=== PATIENT | male | born 1960 | race Caucasian/White ===

== ENCOUNTER → 2017-06-15 | Emergency (ER) | payer MEDICAID ==
[~2017-06-15] VITALS: Ht 182.9 cm; Wt 86.4 kg
[2017-06-15 11:09] LABS: BASOPHILS # (AUTO) 0.1 X10'3 (0-0.2); BASOPHILS % (AUTO) 0.6 % (0-1); EOSINOPHILS # (AUTO) 0.2 X10'3 (0-0.9); EOSINOPHILS % (AUTO) 1.6 % (0-6); HEMATOCRIT 46.2 % (42.0-52.0); HEMOGLOBIN 15.5 g/dl (14.0-17.9); LYMPHOCYTES # (AUTO) 2.4 X10'3 (1.1-4.8); LYMPHOCYTES % (AUTO) 23.4 % (21-51); MEAN CORPUSCULAR HEMOGLOBIN 29.8 PG (27.0-31.0); MEAN CORPUSCULAR HGB CONC 33.6 % (33.0-36.5); MEAN CORPUSCULAR VOLUME 88.6 FL (78-98); MEAN PLATELET VOLUME 8.4 FL (7.4-10.4); MONOCYTES # (AUTO) 0.4 X10'3 (0-0.9); MONOCYTES % (AUTO) 3.5 % (2-12); NEUTROPHILS # (AUTO) 7.1 X10'3 (1.8-7.7); NEUTROPHILS % (AUTO) 70.9 % (42-75); PLATELET COUNT 296 X10'3 (140-440); RED BLOOD COUNT 5.22 X10'6 (4.70-6.10); RED CELL DISTRIBUTION WIDTH 12.9 % (11.5-14.5); WHITE BLOOD COUNT 10.2 X10'3 (4.5-11.0)
[2017-06-15 11:17] LABS: PARTIAL THROMBOPLASTIN TIME 24 SECONDS (22-32); PROTHROMBIN TIME 10.7 SECONDS (9.0-12.0)
[2017-06-15 11:22] LABS: ALANINE AMINOTRANSFERASE 38 U/L (12-78); ALBUMIN/GLOBULIN RATIO 1.2 (1.1-1.5); ALKALINE PHOSPHATASE 63 IU/L (46-116); ANION GAP 10 (8-16); ASPARTATE AMINO TRANSFERASE 28 U/L (10-37); BILIRUBIN,TOTAL 0.6 MG/DL (0.1-1.0); BLOOD UREA NITROGEN 13 MG/DL (7-18); BUN/CREATININE RATIO 14.8 (5.4-32.0); CALCIUM 8.6 MG/DL (8.5-10.1); CHLORIDE 103 MMOL/L (99-107); CREATININE 0.88 MG/DL (0.60-1.10); GLUCOSE 127 MG/DL (70-104); POTASSIUM 3.6 MMOL/L (3.5-5.1); SODIUM 140 MMOL/L (135-145); TOTAL CARBON DIOXIDE 26.8 MMOL/L (24-32); TOTAL PROTEIN 7.3 G/DL (6.4-8.2); eGFR 90 ML/MIN
[2017-06-15 12:20] VITALS: BP 112/68
== END | disposition home or self-care (01) ==
LOC: ER 09:48
DX: R55 Syncope and collapse (principal); R20.0 Anesthesia of skin; R07.89 Other chest pain; R61 Generalized hyperhidrosis; G89.29 Other chronic pain; I10 Essential (primary) hypertension; E78.00 Pure hypercholesterolemia, unspecified; K21.9 Gastro-esophageal reflux disease without esophagitis; F12.10 Cannabis abuse, uncomplicated; Z90.49 Acquired absence of other specified parts of digestive tract; Z88.5 Allergy status to narcotic agent
CPT/HCPCS: 36415; 71046; 80053; 83735; 84484; 85025; 85610; 85730; 93005; 99285

== ENCOUNTER 2018-01-25 13:23 | Observation (INO) | payer MEDICAID ==
[~2018-01-25] VITALS: Ht 182.9 cm; Wt 83.0 kg
[2018-01-25 13:43] LABS: BASOPHILS # (AUTO) 0.1 X10'3 (0-0.2); BASOPHILS % (AUTO) 0.7 % (0-1); EOSINOPHILS # (AUTO) 0.2 X10'3 (0-0.9); EOSINOPHILS % (AUTO) 2.1 % (0-6); HEMATOCRIT 48.3 % (42.0-52.0); HEMOGLOBIN 16.5 g/dl (14.0-17.9); LYMPHOCYTES # (AUTO) 2.4 X10'3 (1.1-4.8); LYMPHOCYTES % (AUTO) 31.2 % (21-51); MEAN CORPUSCULAR HEMOGLOBIN 30.6 PG (27.0-31.0); MEAN CORPUSCULAR HGB CONC 34.2 % (33.0-36.5); MEAN CORPUSCULAR VOLUME 89.4 FL (78-98); MONOCYTES # (AUTO) 0.5 X10'3 (0-0.9); MONOCYTES % (AUTO) 6.6 % (2-12); NEUTROPHILS # (AUTO) 4.6 X10'3 (1.8-7.7); NEUTROPHILS % (AUTO) 59.4 % (42-75); PLATELET COUNT 348 X10'3 (140-440); RED CELL DISTRIBUTION WIDTH 12.9 % (11.5-14.5); WHITE BLOOD COUNT 7.8 X10'3 (4.5-11.0)
[2018-01-25] MEDS ORDERED: normal saline 1000ML IV soln IVB ONE (13:45)
[2018-01-25 13:51] LABS: PARTIAL THROMBOPLASTIN TIME 27 SECONDS (22-32); PROTHROMBIN TIME 10.7 SECONDS (9.0-12.0)
[2018-01-25] MEDS ORDERED: aspirin 81mg tab.chew PO ONE (13:55)
[2018-01-25] MEDS ORDERED: nitroGLYCERIN 0.4mg SUBLingual tab SL PRN ×3 (13:55→15:40)
[2018-01-25 13:58] LABS: ALANINE AMINOTRANSFERASE 46 U/L (12-78); ALBUMIN 4.3 G/DL (3.4-5.0); ALBUMIN/GLOBULIN RATIO 1.2 (1.1-1.5); ALKALINE PHOSPHATASE 83 IU/L (46-116); ANION GAP 9 (8-16); ASPARTATE AMINO TRANSFERASE 35 U/L (10-37); BILIRUBIN,TOTAL 0.5 MG/DL (0.1-1.0); BLOOD UREA NITROGEN 13 MG/DL (7-18); BUN/CREATININE RATIO 15.7 (5.4-32.0); CALCIUM 8.9 MG/DL (8.5-10.1); CHLORIDE 103 MMOL/L (99-107); CREATININE 0.83 MG/DL (0.60-1.10); GLUCOSE 101 MG/DL (70-104); SODIUM 140 MMOL/L (135-145); TOTAL CARBON DIOXIDE 28.5 MMOL/L (24-32); eGFR > 90 ML/MIN
[2018-01-25 14:00] LABS: CLARITY,URINE CLEAR (Clear); COLOR,URINE YELLOW (Yellow); GLUCOSE, URINE NEGATIVE (Neg); KETONES,URINE NEGATIVE (Neg); LEUKOCYTE ESTERASE ,URINE NEGATIVE (Neg); NITRITES, URINE NEGATIVE (Neg); OCCULT BLOOD,URINE NEGATIVE (Neg); PROTEIN,URINE NEGATIVE (Neg); UROBILINOGEN,URINE 0.2 E.U/dL (0.2-1.0)
[2018-01-25 14:01] LABS: UA COLLECTION TYPE NON-SPECIFIED
[2018-01-25] MEDS ORDERED: metoprolol tartrate 1mg/ml inj IV PRN (15:40)
[2018-01-25] MEDS ORDERED: aspirin 325mg tablet PO ONE (15:40)
[2018-01-25] MEDS ORDERED: CAFFEINE CITRATE 60 MG/3 ML injection vial IV PRN (15:40)
[2018-01-25] MEDS ORDERED: regadenoson 0.4mg/5ml syringe IV PRN (15:40)
[2018-01-25] MEDS ORDERED: acetaminophen 325mg tablet PO PRN ×2 (15:40)
[2018-01-25 16:51] LABS: CHOL/HDL RATIO 4.9 (0.00-4.99); CHOLESTEROL 277 MG/DL (0-200); HDL CHOLESTEROL 57 MG/DL (35-60); LDL CHOLESTEROL 182 MG/DL (50-100); TRIGLYCERIDES 223 MG/DL (20-135)
[2018-01-25 17:33] VITALS: BP 126/86
[2018-01-25 19:00] VITALS: BP 130/82
[2018-01-25] MEDS ORDERED: OMEP40CA37 PO (20:08)
[2018-01-25] MEDS ORDERED: AMLO5TAB16 PO (20:08)
[2018-01-25] MEDS ORDERED: FLUO10CA30 PO (20:08)
[2018-01-25] MEDS ORDERED: TAMS0.4C32 PO (20:08)
[2018-01-25] MEDS ORDERED: CYCL-1 PO (20:08)
[2018-01-25] MEDS ORDERED: ASPI-1265 PO (21:31)
[2018-01-26] VITALS (13 sets, daily range): BP systolic 101–131; BP diastolic 61–91
[2018-01-26] MEDS ORDERED: marijuana INH (01:28)
[2018-01-26] MEDS ORDERED: pantoprazole 40mg Tablet.DR PO SCH (07:30)
[2018-01-26] MEDS ORDERED: enoxaparin 40mg/0.4ml syringe SQ SCH (08:00)
[2018-01-26] MEDS ORDERED: atorvastatin 10mg tablet PO SCH (08:00)
[2018-01-26] MEDS ORDERED: CAFFEINE CITRATE 60 MG/3 ML injection vial IV ONE (09:08)
[2018-01-26] MEDS ORDERED: regadenoson 0.4mg/5ml syringe IV ONE (09:08)
[2018-01-26] MEDS ORDERED: ATOR20TA66 PO (13:08)
[2018-01-27] MEDS ORDERED: atorvastatin 20mg tablet PO SCH (08:00)
== END 2018-01-26 14:00 | disposition home or self-care (01) ==
LOC: ER 13:23 → ED HOLD 15:40 → SUR 3N 16:58
PROVIDERS: ADMIT Hospitalist; ATTEND Hospitalist
DX: R07.2 Precordial pain (principal); R10.9 Unspecified abdominal pain; E78.2 Mixed hyperlipidemia; E78.00 Pure hypercholesterolemia, unspecified; I10 Essential (primary) hypertension; K21.9 Gastro-esophageal reflux disease without esophagitis; F12.90 Cannabis use, unspecified, uncomplicated; F41.9 Anxiety disorder, unspecified; K59.00 Constipation, unspecified; G89.29 Other chronic pain; N20.0 Calculus of kidney; Z90.49 Acquired absence of other specified parts of digestive tract; Z82.49 Family history of ischemic heart disease and other diseases of the circulatory system
CPT/HCPCS: 36415; 71045; 74176; 78452; 80053; 80061; 81003; 84484; 85025; 85610; 85730; 87070; 93005; 93017; 96374; 99285; A9500; G0378; Q2037

== ENCOUNTER 2018-05-14 14:46 | Emergency (ER) | payer MEDICAID ==
[~2018-05-14] VITALS: Ht 182.9 cm; Wt 79.5 kg
[~2018-05-14 14:46] MED LIST: AMLO5TAB16 PO; ASPI-1265 PO; ATOR20TA66 PO; CYCL-1 PO; FLUO10CA30 PO; OMEP40CA37 PO; TAMS0.4C32 PO; marijuana INH
[2018-05-14 15:21] LABS: EOSINOPHILS % (AUTO) 1.7 % (0-6); HEMATOCRIT 46.7 % (42.0-52.0); HEMOGLOBIN 15.6 g/dl (14.0-17.9); LYMPHOCYTES % (AUTO) 30.4 % (21-51); MEAN CORPUSCULAR HEMOGLOBIN 30.3 PG (27.0-31.0); MEAN CORPUSCULAR HGB CONC 33.4 % (33.0-36.5); MEAN CORPUSCULAR VOLUME 90.6 FL (78-98); MONOCYTES % (AUTO) 5.1 % (2-12); NEUTROPHILS % (AUTO) 61.7 % (42-75); PLATELET COUNT 317 X10'3 (140-440); RED BLOOD COUNT 5.15 X10'6 (4.70-6.10); RED CELL DISTRIBUTION WIDTH 14.3 % (11.5-14.5); WHITE BLOOD COUNT 9.1 X10'3 (4.5-11.0)
[2018-05-14 15:22] LABS: BASOPHILS # (AUTO) 0.1 X10'3 (0-0.2); BASOPHILS % (AUTO) 1.1 % (0-1); EOSINOPHILS # (AUTO) 0.2 X10'3 (0-0.9); LYMPHOCYTES # (AUTO) 2.8 X10'3 (1.1-4.8); MONOCYTES # (AUTO) 0.5 X10'3 (0-0.9); NEUTROPHILS # (AUTO) 5.6 X10'3 (1.8-7.7)
[2018-05-14 15:53] LABS: ALANINE AMINOTRANSFERASE 37 U/L (12-78); ALBUMIN 3.9 G/DL (3.4-5.0); ALBUMIN/GLOBULIN RATIO 1.2 (1.1-1.5); ALKALINE PHOSPHATASE 64 IU/L (46-116); ANION GAP 11 (8-16); ASPARTATE AMINO TRANSFERASE 21 U/L (10-37); BILIRUBIN,TOTAL 0.7 MG/DL (0.1-1.0); BLOOD UREA NITROGEN 16 MG/DL (7-18); CALCIUM 8.3 MG/DL (8.5-10.1); CHLORIDE 102 MMOL/L (99-107); CREATININE 0.84 MG/DL (0.60-1.10); GLUCOSE 102 MG/DL (70-104); POTASSIUM 3.7 MMOL/L (3.5-5.1); SODIUM 138 MMOL/L (135-145); TOTAL CARBON DIOXIDE 24.6 MMOL/L (24-32); TOTAL PROTEIN 7.1 G/DL (6.4-8.2); eGFR > 90 ML/MIN
[2018-05-14] MEDS ORDERED: NITR0.4T51 SL (16:01)
[2018-05-14 16:16] VITALS: BP 121/69
== END 2018-05-14 16:18 | disposition home or self-care (01) ==
LOC: ER 14:47
DX: I20.8 Other forms of angina pectoris (principal); R07.89 Other chest pain; E78.00 Pure hypercholesterolemia, unspecified; I10 Essential (primary) hypertension; K21.9 Gastro-esophageal reflux disease without esophagitis; G89.29 Other chronic pain; F12.90 Cannabis use, unspecified, uncomplicated; E78.5 Hyperlipidemia, unspecified; Z90.49 Acquired absence of other specified parts of digestive tract; Z88.5 Allergy status to narcotic agent; Z79.82 Long term (current) use of aspirin; Z79.899 Other long term (current) drug therapy
CPT/HCPCS: 36415; 71045; 80053; 83735; 83880; 84484; 85025; 93005; 99284

== ENCOUNTER 2019-03-06 12:07 | Emergency (ER) | payer MEDICAID ==
[~2019-03-06] VITALS: Ht 182.9 cm; Wt 87.0 kg
[~2019-03-06 12:07] MED LIST changes: +OMEP40CA13 PO; -OMEP40CA37 PO
[2019-03-06] MEDS ORDERED: BENZ-16 PO (12:56)
[2019-03-06] MEDS ORDERED: ALBU18HF2 INH (12:56)
[2019-03-06] MEDS ORDERED: AZIT500T PO (12:56)
[2019-03-06 13:00] VITALS: BP 101/65
--- NOTE | 2019-03-06 13:11 | NUR ---
pt ekg and x ray completed waiting for results.
[2019-03-06] MEDS ORDERED: ibuprofen tablet 400 MG TABLET PO ONE (13:55)
[2019-03-06] MEDS ORDERED: ibuprofen 200mg tablet PO ONE (14:00)
== END 2019-03-06 14:08 | disposition home or self-care (01) ==
LOC: ER 12:08
DX: J06.9 Acute upper respiratory infection, unspecified (principal); E78.00 Pure hypercholesterolemia, unspecified; I10 Essential (primary) hypertension; J44.9 Chronic obstructive pulmonary disease, unspecified; G89.29 Other chronic pain; K21.9 Gastro-esophageal reflux disease without esophagitis; F12.90 Cannabis use, unspecified, uncomplicated; Z90.89 Acquired absence of other organs; Z87.891 Personal history of nicotine dependence; Z88.5 Allergy status to narcotic agent; Z88.8 Allergy status to other drugs, medicaments and biological substances; Z79.2 Long term (current) use of antibiotics; Z79.899 Other long term (current) drug therapy; Z87.442 Personal history of urinary calculi
CPT/HCPCS: 71046; 93005; 99283

== ENCOUNTER 2019-04-23 15:11 | Emergency (ER) | payer MEDICAID ==
[~2019-04-23] VITALS: Ht 182.9 cm; Wt 85.0 kg
[~2019-04-23 15:11] MED LIST changes: +ALBU18HF2 INH
[2019-04-23 15:20] VITALS: BP 129/86
[2019-04-23] MEDS ORDERED: PRED20TA PO (15:46)
[2019-04-23] MEDS ORDERED: AZIT-72 PO (15:46)
== END 2019-04-23 16:26 | disposition home or self-care (01) ==
LOC: ER 15:11
DX: J40 Bronchitis, not specified as acute or chronic (principal); E78.00 Pure hypercholesterolemia, unspecified; I10 Essential (primary) hypertension; J44.9 Chronic obstructive pulmonary disease, unspecified; K21.9 Gastro-esophageal reflux disease without esophagitis; G89.29 Other chronic pain; F12.90 Cannabis use, unspecified, uncomplicated; Z87.442 Personal history of urinary calculi; Z90.49 Acquired absence of other specified parts of digestive tract; Z98.890 Other specified postprocedural states; Z88.5 Allergy status to narcotic agent; Z88.8 Allergy status to other drugs, medicaments and biological substances; Z79.82 Long term (current) use of aspirin; Z79.899 Other long term (current) drug therapy
CPT/HCPCS: 99283

== ENCOUNTER 2019-10-14 11:32 | Emergency (ER) | payer MEDICAID ==
[~2019-10-14] VITALS: Ht 182.9 cm; Wt 90.9 kg
[2019-10-14 12:00] LABS: BASOPHILS # (AUTO) 0.1 X10'3 (0-0.2); EOSINOPHILS # (AUTO) 0.1 X10'3 (0-0.9); HEMATOCRIT 45.4 % (42.0-52.0); HEMOGLOBIN 15.4 g/dl (14.0-17.9); LYMPHOCYTES # (AUTO) 2.5 X10'3 (1.1-4.8); LYMPHOCYTES % (AUTO) 27.5 % (21-51); MEAN CORPUSCULAR VOLUME 91.2 FL (78-98); MEAN PLATELET VOLUME 8.2 FL (7.4-10.4); MONOCYTES # (AUTO) 0.5 X10'3 (0-0.9); MONOCYTES % (AUTO) 5.1 % (2-12); NEUTROPHILS % (AUTO) 65.4 % (42-75); PLATELET COUNT 332 X10'3 (140-440); RED BLOOD COUNT 4.98 X10'6 (4.70-6.10); RED CELL DISTRIBUTION WIDTH 13.8 % (11.5-14.5); WHITE BLOOD COUNT 9.2 X10'3 (4.5-11.0)
[2019-10-14 12:19] LABS: ALANINE AMINOTRANSFERASE 43 U/L (12-78); ALBUMIN 3.9 G/DL (3.4-5.0); ALBUMIN/GLOBULIN RATIO 1.2 (1.1-1.5); ALKALINE PHOSPHATASE 60 IU/L (46-116); ANION GAP 11 (8-16); ASPARTATE AMINO TRANSFERASE 36 U/L (10-37); BILIRUBIN,TOTAL 0.6 MG/DL (0.1-1.0); BLOOD UREA NITROGEN 11 MG/DL (7-18); BUN/CREATININE RATIO 11.6 (5.4-32.0); CALCIUM 9.2 MG/DL (8.5-10.1); CHLORIDE 107 MMOL/L (99-107); CREATININE 0.95 MG/DL (0.60-1.10); GLUCOSE 98 MG/DL (70-104); POTASSIUM 3.5 MMOL/L (3.5-5.1); SODIUM 143 MMOL/L (135-145); TOTAL CARBON DIOXIDE 24.8 MMOL/L (24-32); TOTAL PROTEIN 7.2 G/DL (6.4-8.2); eGFR 82 ML/MIN
[2019-10-14] MEDS ORDERED: ibuprofen tablet 400 MG TABLET PO ONE (13:05)
[2019-10-14] MEDS ORDERED: ibuprofen 200mg tablet PO ONE (13:05)
[2019-10-14 13:39] VITALS: BP 125/86
== END 2019-10-14 13:32 | disposition home or self-care (01) ==
LOC: ER 11:33
DX: R07.89 Other chest pain (principal); R19.7 Diarrhea, unspecified; E78.00 Pure hypercholesterolemia, unspecified; I10 Essential (primary) hypertension; J44.9 Chronic obstructive pulmonary disease, unspecified; K21.9 Gastro-esophageal reflux disease without esophagitis; G89.29 Other chronic pain; F12.90 Cannabis use, unspecified, uncomplicated; Z87.442 Personal history of urinary calculi; Z90.49 Acquired absence of other specified parts of digestive tract; Z98.890 Other specified postprocedural states; Z88.5 Allergy status to narcotic agent; Z88.8 Allergy status to other drugs, medicaments and biological substances; Z79.899 Other long term (current) drug therapy
CPT/HCPCS: 36415; 71045; 80053; 84484; 85025; 93005; 99285

== ENCOUNTER 2020-11-06 11:14 | Emergency (ER) | payer MEDICAID ==
[~2020-11-06 11:14] MED LIST changes: -OMEP40CA13 PO; +OMEP40CA21 PO
--- NOTE | 2020-11-06 11:23 | NUR ---
PER ER REG PT RECIEVED EKG AND THEN LEFT THE ER LOBBY.
== END 2020-11-06 11:36 | disposition left against medical advice (07) ==
LOC: ER 11:15
DX: I95.9 Hypotension, unspecified (principal); Z53.21 Procedure and treatment not carried out due to patient leaving prior to being seen by health care provider
CPT/HCPCS: 93005

== ENCOUNTER 2021-07-04 14:59 | Emergency (ER) | payer MEDICAID ==
[~2021-07-04] VITALS: Ht 182.9 cm; Wt 76.4 kg
[~2021-07-04 14:59] MED LIST changes: -FLUO10CA30 PO; +PROZ10C PO
[2021-07-04 15:05] VITALS: BP 117/77
== END 2021-07-04 19:37 | disposition left against medical advice (07) ==
LOC: ER 15:00
DX: R06.02 Shortness of breath (principal); Z53.21 Procedure and treatment not carried out due to patient leaving prior to being seen by health care provider

== ENCOUNTER 2021-09-10 11:36 | Emergency (ER) | payer MEDICAID ==
[~2021-09-10] VITALS: Ht 175.3 cm; Wt 77.2 kg
[2021-09-10 11:45] VITALS: BP 106/80
== END 2021-09-10 13:00 | disposition left against medical advice (07) ==
LOC: ER 11:37
DX: R05.9 Cough, unspecified (principal); Z53.21 Procedure and treatment not carried out due to patient leaving prior to being seen by health care provider

== ENCOUNTER 2022-07-07 07:37 | Emergency (ER) | payer MEDICAID ==
[~2022-07-07] VITALS: Ht 180.3 cm; Wt 72.0 kg
[2022-07-07] MEDS ORDERED: morphine 4 MG/ML inj SYRINge IV ONE ×2 (08:45→11:00)
[2022-07-07] MEDS ORDERED: ondansetron/PF 4mg/2ml inj IV ONE (08:45)
--- NOTE | 2022-07-07 08:45 | NUR ---
PT STATES HE HAS TAKEN MORPHINE BEFORE WITH NO ISSUE WILL MONITOR
[2022-07-07 10:10] LABS: BASOPHILS # (AUTO) 0.1 X10'3 (0-0.2); BASOPHILS % (AUTO) 0.7 % (0-1); EOSINOPHILS # (AUTO) 0.1 X10'3 (0-0.9); EOSINOPHILS % (AUTO) 1.4 % (0-6); HEMATOCRIT 47.2 % (42.0-52.0); HEMOGLOBIN 15.9 g/dl (14.0-17.9); LYMPHOCYTES # (AUTO) 2.9 X10'3 (1.1-4.8); LYMPHOCYTES % (AUTO) 27.4 % (21-51); MEAN CORPUSCULAR HEMOGLOBIN 30.8 PG (27.0-31.0); MEAN CORPUSCULAR HGB CONC 33.6 g/dL (33.0-36.5); MEAN CORPUSCULAR VOLUME 91.5 FL (78-98); MONOCYTES # (AUTO) 0.5 X10'3 (0-0.9); MONOCYTES % (AUTO) 5.1 % (2-12); NEUTROPHILS % (AUTO) 65.4 % (42-75); PLATELET COUNT 368 X10'3 (140-440); RED BLOOD COUNT 5.16 X10'6 (4.70-6.10); WHITE BLOOD COUNT 10.7 X10'3 (4.5-11.0)
[2022-07-07 10:27] LABS: ALANINE AMINOTRANSFERASE 44 U/L (12-78); ALBUMIN 3.9 G/DL (3.4-5.0); ALBUMIN/GLOBULIN RATIO 1.2 (1.1-1.5); ALKALINE PHOSPHATASE 66 IU/L (46-116); ANION GAP 8 (8-16); ASPARTATE AMINO TRANSFERASE 29 U/L (10-37); BILIRUBIN,TOTAL 0.4 MG/DL (0.1-1.0); BLOOD UREA NITROGEN 14 MG/DL (7-18); BUN/CREATININE RATIO 19.2 (5.4-32.0); CALCIUM 8.7 MG/DL (8.5-10.1); CHLORIDE 104 MMOL/L (99-107); CREATININE 0.73 MG/DL (0.60-1.10); GLUCOSE 108 MG/DL (70-104); POTASSIUM 4.1 MMOL/L (3.5-5.1); SODIUM 140 MMOL/L (135-145); TOTAL PROTEIN 7.2 G/DL (6.4-8.2); eGFR > 90 ML/MIN
[2022-07-07] MEDS ORDERED: iohexol 300mg/ml 100ml inj. ONE (10:33)
[2022-07-07 11:39] VITALS: BP 133/88
== END 2022-07-07 11:41 | disposition home or self-care (01) ==
LOC: ER 07:38
DX: R10.31 Right lower quadrant pain (principal); M79.10 Myalgia, unspecified site; I11.0 Hypertensive heart disease with heart failure; J44.9 Chronic obstructive pulmonary disease, unspecified; K21.9 Gastro-esophageal reflux disease without esophagitis; G89.29 Other chronic pain; Z87.442 Personal history of urinary calculi; F12.10 Cannabis abuse, uncomplicated; Z88.5 Allergy status to narcotic agent; Z88.6 Allergy status to analgesic agent; Z79.899 Other long term (current) drug therapy; Z79.1 Long term (current) use of non-steroidal anti-inflammatories (NSAID)
CPT/HCPCS: 36415; 74177; 80053; 83605; 85025; 96374; 96375; 96376; 99285; J2270; J2405; J3490; Q9967

== ENCOUNTER 2022-07-26 11:33 | Day surgery (SDC) | payer MEDICAID ==
[2022-07-20 13:47] LABS: BASOPHILS # (AUTO) 0.1 X10'3 (0-0.2); BASOPHILS % (AUTO) 0.8 % (0-1); EOSINOPHILS # (AUTO) 0.1 X10'3 (0-0.9); EOSINOPHILS % (AUTO) 1.8 % (0-6); LYMPHOCYTES # (AUTO) 2.5 X10'3 (1.1-4.8); LYMPHOCYTES % (AUTO) 29.9 % (21-51); MEAN CORPUSCULAR HEMOGLOBIN 30.9 PG (27.0-31.0); MEAN CORPUSCULAR HGB CONC 33.9 g/dL (33.0-36.5); MEAN PLATELET VOLUME 7.4 FL (7.4-10.4); MONOCYTES # (AUTO) 0.6 X10'3 (0-0.9); MONOCYTES % (AUTO) 7.6 % (2-12); NEUTROPHILS # (AUTO) 4.9 X10'3 (1.8-7.7); NEUTROPHILS % (AUTO) 59.9 % (42-75); PRE OP HEMATOCRIT 49.2 % (42.0-52.0); PRE OP HEMOGLOBIN 16.7 g/dL (14.0-17.9); PRE OP PLATELET COUNT 356 X10'3 (140-440); RED CELL DISTRIBUTION WIDTH 14.2 % (11.5-14.5)
[2022-07-20 14:03] LABS: ALBUMIN 3.8 G/DL (3.4-5.0); ALBUMIN/GLOBULIN RATIO 1.1 (1.1-1.5); ALKALINE PHOSPHATASE 69 IU/L (46-116); BLOOD UREA NITROGEN 20 MG/DL (7-18); BUN/CREATININE RATIO 23.3 (10.0-20.0); CALCIUM 9.4 MG/DL (8.5-10.1); CHLORIDE 104 MMOL/L (99-107); CREATININE 0.86 MG/DL (0.60-1.10); PRE OP ALT 20 U/L (30-65); PRE OP ANION GAP 7 (8-16); PRE OP AST 19 U/L (10-37); PRE OP BILIRUB, TOTAL 0.8 MG/DL (0.0-1.0); PRE OP GLUCOSE 103 MG/DL (70-104); PRE OP POTASSIUM 3.9 MMOL/L (3.4-5.1); PRE OP SODIUM 140 MMOL/L (135-145); TOTAL CARBON DIOXIDE 28.6 MMOL/L (24-32); TOTAL PROTEIN 7.3 G/DL (6.4-8.2); eGFR > 90 ML/MIN
[2022-07-26] VITALS (11 sets, daily range): BP systolic 116–146; BP diastolic 66–100
[~2022-07-26] VITALS: Ht 182.9 cm; Wt 68.7 kg
[~2022-07-26 11:33] MED LIST changes: -ALBU18HF2 INH; -AMLO5TAB16 PO; -ASPI-1265 PO; -ATOR20TA66 PO; -CYCL-1 PO; +cefazolin 2gm/D5W 100mL 100 ML IV ONE; +famotidine 20mg tablet PO ONE; +ringers solution, lacted 1,000 ML IV SCH
[2022-07-26] MEDS ORDERED: morphine 2 MG/ML inj. syringe IV PRN (16:35)
[2022-07-26] MEDS ORDERED: proCHLORperazine 10 MG/2 ml inj IV PRN (16:35)
[2022-07-26] MEDS ORDERED: ondansetron/PF 4mg/2ml inj IV PRN (16:35)
[2022-07-26] MEDS ORDERED: morphine 4 MG/ML inj SYRINge IV PRN (16:35)
[2022-07-26] MEDS ORDERED: meperidine/PF 25mg/ml syringe IV PRN ×3 (16:35)
[2022-07-26] MEDS ORDERED: ringers solution, lacted 1,000 ML IV SCH (16:35)
[2022-07-26] MEDS ORDERED: BUPIVAcaine/PF 2.5 mg/ml (0.25%) 30ml vial ONE (18:23)
[2022-07-26] MEDS ORDERED: midazolam 1 mg/ML 2ml injection ONE (18:36)
[2022-07-26] MEDS ORDERED: fentaNYL/PF 50MCG/1 ML 2ML syringe ONE (18:36)
[2022-07-26] MEDS ORDERED: propofol inj 20 ML IV ONE (18:37)
[2022-07-26] MEDS ORDERED: rocuronium 10mg/ml inj IV ONE ×2 (18:39→20:22)
[2022-07-26] MEDS ORDERED: sevoflurane 250ml liquid IH ONE (18:41)
[2022-07-26] MEDS ORDERED: BUPIVAcaine/PF 2.5 mg/ml (0.25%) 30ml vial IJ ONE (19:32)
[2022-07-26] MEDS ORDERED: dexamethasone sod phosphate 4mg/ml inj. ONE (20:22)
[2022-07-26] MEDS ORDERED: ondansetron/PF 4mg/2ml inj ONE (20:23)
[2022-07-26] MEDS ORDERED: acetaminophen 1,000mg/100ml IV 100 ML IV ONE (20:23)
[2022-07-26] MEDS ORDERED: neostigmine methylsulfate 1 MG/ML 10ml vial ONE (20:25)
[2022-07-26] MEDS ORDERED: glycopyrrolate 0.2mg/ml inj ONE (20:26)
--- NOTE | 2022-07-26 20:44 | NUR ---
Received from OR via [facility] TO ROOM 6, accompanied by Anesthesiologist DR JOSEPH and report given by Anesthesiolgist. PT PRESENTS WITH 20G RIGHT FOREARM, ABD DRESSING WITH DERMABOND VSS. Addendum: 07/26/22 at 2052 by Penny Silverman RN, RN Amended: Links added.
[2022-07-26] MEDS ORDERED: oxyCODONE/APAP 5-325mg tablet PO ONE (21:00)
--- NOTE | 2022-07-26 22:27 | NUR ---
PT IS ABLE TO SAFELY AMBULATE AND TRANSFER SELF. IV TAKEN OUT WITH CATHETER INTACT. PT SENT HOME WITH A [employer] CATHETER WITH INSTRUCTIONS AND ON HOW TO REMOVE IT, [place] ALL DC INSTRUCTIONS REVIEWED WITH PT, PT VERBALIZED UNDERSTANDING WITH NO FURTHER QUESTIONS AT THIS TIME. PT TAKEN OUT OF HOSPITAL IN WHEELCHAIR TO PT'S FRIENDS CAR WHO GAVE TRANSPORT HOME. RX WAS CALLED INTO [facility] [address] BY DR CARTER OFFICE. PT'S FRIEND PICKED UP RX. Addendum: 07/26/22 at 2232 by Penny Silverman RN, RN Amended: Links added.
== END 2022-07-26 22:14 | disposition home or self-care (01) ==
LOC: PAS 11:33
PROVIDERS: ATTEND Surgery
DX: K40.20 Bilateral inguinal hernia, without obstruction or gangrene, not specified as recurrent (principal); K43.9 Ventral hernia without obstruction or gangrene; M19.90 Unspecified osteoarthritis, unspecified site; K21.9 Gastro-esophageal reflux disease without esophagitis; F12.90 Cannabis use, unspecified, uncomplicated; F41.9 Anxiety disorder, unspecified; Z79.899 Other long term (current) drug therapy; Z79.01 Long term (current) use of anticoagulants; Z88.6 Allergy status to analgesic agent; Z88.1 Allergy status to other antibiotic agents; Z88.8 Allergy status to other drugs, medicaments and biological substances; Z87.891 Personal history of nicotine dependence; Z90.49 Acquired absence of other specified parts of digestive tract
CPT/HCPCS: 36415; 49650; 80053; 82948; 85025; 93005; C1758; C1781; J0131; J0690; J1100; J2175; J2250; J2405; J2704; J2710; J3010; J3490; J7030; J7120; S2900; Z7506; Z7508; Z7512; A4215; A4618; A5200

== ENCOUNTER 2022-07-28 06:24 | Emergency (ER) | payer MEDICAID ==
[~2022-07-28] VITALS: Ht 180.3 cm; Wt 74.0 kg
[~2022-07-28 06:24] MED LIST changes: -cefazolin 2gm/D5W 100mL 100 ML IV ONE; -famotidine 20mg tablet PO ONE; -ringers solution, lacted 1,000 ML IV SCH
[2022-07-28 08:20] VITALS: BP 129/79
== END 2022-07-28 08:24 | disposition home or self-care (01) ==
LOC: ER 06:25
DX: Z46.6 Encounter for fitting and adjustment of urinary device (principal); E78.00 Pure hypercholesterolemia, unspecified; I10 Essential (primary) hypertension; J44.9 Chronic obstructive pulmonary disease, unspecified; K21.9 Gastro-esophageal reflux disease without esophagitis; F12.90 Cannabis use, unspecified, uncomplicated; G89.29 Other chronic pain; Z87.442 Personal history of urinary calculi; Z90.49 Acquired absence of other specified parts of digestive tract; Z88.5 Allergy status to narcotic agent; Z88.8 Allergy status to other drugs, medicaments and biological substances; Z79.899 Other long term (current) drug therapy
CPT/HCPCS: 99281

== ENCOUNTER 2022-12-11 20:41 | Emergency (ER) | payer MEDICAID ==
[~2022-12-11] VITALS: Ht 180.3 cm; Wt 65.9 kg
[2022-12-11 20:54] VITALS: BP 119/83; PULSE 99; TEMP 99.2; O2SAT 98
[2022-12-11 20:57] LABS: BASOPHILS # (AUTO) 0.1 X10'3 (0-0.2); BASOPHILS % (AUTO) 0.9 % (0-1); EOSINOPHILS % (AUTO) 0.1 % (0-6); HEMATOCRIT 44.7 % (42.0-52.0); HEMOGLOBIN 14.7 g/dl (14.0-17.9); LYMPHOCYTES # (AUTO) 1.7 X10'3 (1.1-4.8); LYMPHOCYTES % (AUTO) 16.7 % (21-51); MEAN CORPUSCULAR HEMOGLOBIN 30.1 PG (27.0-31.0); MEAN CORPUSCULAR HGB CONC 32.9 g/dL (33.0-36.5); MEAN CORPUSCULAR VOLUME 91.5 FL (78-98); MEAN PLATELET VOLUME 7.6 FL (7.4-10.4); MONOCYTES # (AUTO) 0.6 X10'3 (0-0.9); MONOCYTES % (AUTO) 6.4 % (2-12); NEUTROPHILS # (AUTO) 7.6 X10'3 (1.8-7.7); NEUTROPHILS % (AUTO) 75.9 % (42-75); PLATELET COUNT 400 X10'3 (140-440); RED BLOOD COUNT 4.88 X10'6 (4.70-6.10); RED CELL DISTRIBUTION WIDTH 14.6 % (11.5-14.5)
[2022-12-11 21:10] LABS: ALANINE AMINOTRANSFERASE 27 U/L (12-78); ALBUMIN 3.5 G/DL (3.4-5.0); ALKALINE PHOSPHATASE 84 IU/L (46-116); ANION GAP 8 (8-16); ASPARTATE AMINO TRANSFERASE 23 U/L (10-37); BILIRUBIN,TOTAL 0.3 MG/DL (0.1-1.0); BLOOD UREA NITROGEN 10 MG/DL (7-18); CALCIUM 8.6 MG/DL (8.5-10.1); CHLORIDE 104 MMOL/L (99-107); CREATININE 0.83 MG/DL (0.60-1.10); GLUCOSE 96 MG/DL (70-104); LIPASE 122 U/L (73-393); POTASSIUM 3.8 MMOL/L (3.5-5.1); SODIUM 141 MMOL/L (135-145); TOTAL CARBON DIOXIDE 29.3 MMOL/L (24-32); TOTAL PROTEIN 7.1 G/DL (6.4-8.2); eCRCL 87 ML/MIN; eGFR > 90 ML/MIN
[2022-12-11 22:17] LABS: BILIRUBIN,URINE NEGATIVE (Neg); CLARITY,URINE CLEAR (Clear); COLOR,URINE YELLOW (Yellow); GLUCOSE, URINE NEGATIVE (Neg); KETONES,URINE NEGATIVE (Neg); LEUKOCYTE ESTERASE ,URINE NEGATIVE (Neg); NITRITES, URINE NEGATIVE (Neg); OCCULT BLOOD,URINE NEGATIVE (Neg); PH,URINE 6.5 (4.8-8.0); PROTEIN,URINE NEGATIVE (Neg); UROBILINOGEN,URINE 0.2 E.U/dL (0.2-1.0)
[2022-12-11 22:24] LABS: UA COLLECTION TYPE CLN CATCH MIDSTREAM
[2022-12-11] MEDS ORDERED: DOXYCYCLINE 100MG CAPSULE PO STA (22:39)
[2022-12-11] MEDS ORDERED: dicyclomine 10 MG capsule PO ONE (22:40)
[2022-12-11] MEDS ORDERED: lactulose 20gm/30ml cup PO ONE (22:55)
[2022-12-11] MEDS ORDERED: DICY10CA88 PO (22:55)
[2022-12-11] MEDS ORDERED: BISA10SU64 RC (22:55)
[2022-12-11] MEDS ORDERED: bisacodyl 10mg suppository rectal RC STA (22:55)
[2022-12-11 23:05] VITALS: RESP 18
== END 2022-12-11 23:15 | disposition home or self-care (01) ==
LOC: ER 20:42
DX: K59.00 Constipation, unspecified (principal); C34.90 Malignant neoplasm of unspecified part of unspecified bronchus or lung; E78.00 Pure hypercholesterolemia, unspecified; I10 Essential (primary) hypertension; J44.9 Chronic obstructive pulmonary disease, unspecified; K21.9 Gastro-esophageal reflux disease without esophagitis; F12.90 Cannabis use, unspecified, uncomplicated; Z88.5 Allergy status to narcotic agent; Z88.8 Allergy status to other drugs, medicaments and biological substances; Z79.899 Other long term (current) drug therapy; Z90.49 Acquired absence of other specified parts of digestive tract
CPT/HCPCS: 36415; 74018; 80053; 81003; 83690; 85025; 99284

== ENCOUNTER 2023-08-10 13:33 | Inpatient (IN) | payer MEDICAID ==
[~2023-08-10] VITALS: Ht 180.3 cm; Wt 75.9 kg
[~2023-08-10 13:33] MED LIST changes: +BISA10SU64 RC
[2023-08-10 14:42] LABS: BASOPHILS % (AUTO) 0.3 % (0-1); EOSINOPHILS % (AUTO) 0.3 % (0-6); HEMATOCRIT 39.2 % (42.0-52.0); LYMPHOCYTES # (AUTO) 0.9 X10'3 (1.1-4.8); MEAN CORPUSCULAR HEMOGLOBIN 30.2 PG (27.0-31.0); MEAN CORPUSCULAR HGB CONC 33.3 g/dL (33.0-36.5); MEAN CORPUSCULAR VOLUME 90.7 FL (78-98); MEAN PLATELET VOLUME 8.1 FL (7.4-10.4); MONOCYTES # (AUTO) 0.5 X10'3 (0-0.9); MONOCYTES % (AUTO) 6.1 % (2-12); NEUTROPHILS # (AUTO) 7.5 X10'3 (1.8-7.7); NEUTROPHILS % (AUTO) 83.3 % (42-75); PLATELET COUNT 332 X10'3 (140-440); RED BLOOD COUNT 4.32 X10'6 (4.70-6.10); RED CELL DISTRIBUTION WIDTH 14.5 % (11.5-14.5)
[2023-08-10 15:04] LABS: ANION GAP 6 (8-16); BLOOD UREA NITROGEN 21 MG/DL (7-18); BUN/CREATININE RATIO 24.1 (10.0-20.0); CHLORIDE 107 MMOL/L (99-107); CREATININE 0.87 MG/DL (0.60-1.10); GLUCOSE 100 MG/DL (70-104); POTASSIUM 4.2 MMOL/L (3.5-5.1); PRO BRAIN NATRIURETIC PEPTIDE 90 PG/ML (0-125); SODIUM 142 MMOL/L (135-145); TOTAL CARBON DIOXIDE 29.5 MMOL/L (24-32); eCRCL 95 ML/MIN; eGFR 89 ML/MIN
[2023-08-10] MEDS ORDERED: iohexol 350MG/ML 100ml bottle IV ONE (15:11)
[2023-08-10] MEDS: aspirin 81mg tab.chew PO ONE (15:38)
[2023-08-10] MEDS: diphenhydrAMINE 50 mg/ml inj IV ONE (15:39)
[2023-08-10] MEDS: morphine 2 MG/ML inj. syringe IV ONE (15:40)
[2023-08-10] MEDS: normal saline 500ml IV soln 500 ML IV SCH (15:52)
[2023-08-10] MEDS: normal saline 1000ML IV soln IVB ONE (15:52)
[2023-08-10 16:10] LABS: MAGNESIUM 2.2 MG/DL (1.5-2.4)
[2023-08-10] MEDS ORDERED: potassium Cl 20 mEq SR tablet PO PRN ×2 (17:05)
[2023-08-10] MEDS ORDERED: aminophylline 250mg/10ml inj. IV PRN (17:05)
[2023-08-10] MEDS ORDERED: magnesium hydroxide 30ml (MOM) UD suspension PO PRN (17:05)
[2023-08-10] MEDS ORDERED: potassium Cl 40MEQ/1/2NS 520ml 520 ML IV PRN (17:05)
[2023-08-10] MEDS ORDERED: metoprolol tartrate 1mg/ml inj IV PRN (17:05)
[2023-08-10] MEDS ORDERED: magnesium Cl slow-release 64mg tablet PO PRN (17:05)
[2023-08-10] MEDS ORDERED: nitroGLYCERIN 0.4mg SUBLingual tab SL PRN (17:05)
[2023-08-10] MEDS ORDERED: magnesium 4gm in 100ml NS 100 ML IV PRN (17:05)
[2023-08-10] MEDS ORDERED: magnesium 2GM in 50ml NS 50 ML IV PRN (17:05)
[2023-08-10] MEDS ORDERED: acetaminophen 325mg tablet PO PRN (17:05)
[2023-08-10 17:45] LABS: HEMOGLOBIN A1C 5.9 % (4.5-6.2)
[2023-08-10 17:50] LABS: PHOSPHORUS 3.5 MG/DL (2.3-4.5); POTASSIUM 4.2 MMOL/L (3.5-5.1)
[2023-08-10] MEDS ORDERED: OMEP20CA15 PO (18:16)
[2023-08-10] MEDS ORDERED: OXYC1TAB17 PO (18:16)
[2023-08-10] MEDS ORDERED: ALBU18HF2 INH (18:16)
[2023-08-10] MEDS ORDERED: MORP20CA17 PO (18:16)
[2023-08-10] MEDS ORDERED: CLIN300C71 PO (18:16)
[2023-08-10] MEDS: mag hydrox/Alum hydrox/simeth 30ml oral suspension PO PRN (19:59)
[2023-08-10 20:00] VITALS: BP_SYST 104; BP_SYST 115; BP_DIAS 65; BP_DIAS 73; PULSE 74; PULSE 81; RESP 18; TEMP 97.2; O2SAT 99
[2023-08-10] MEDS: morphine 2 MG/ML inj. syringe IV PRN (20:00)
[2023-08-10] MEDS: K and/or MAG REPLACEMENT MC SCH (20:00)
[2023-08-10] MEDS: ondansetron/PF 4mg/2ml inj IV PRN (20:01)
[2023-08-10] MEDS: docusate sod 100mg capsule PO SCH (20:03)
[2023-08-10] MEDS: heparin, porcine 5000 units/ml vial SQ SCH (20:08)
[2023-08-10] MEDS: normal saline 1000ml 1,000 ML IV SCH (20:21)
[2023-08-10] MEDS: atorvastatin 20mg tablet PO SCH (20:23)
[2023-08-10 22:00] VITALS: BP 103/65; PULSE 82; RESP 14; TEMP 97.9; O2SAT 99
[2023-08-11] VITALS (14 sets, daily range): BP systolic 98–130; BP diastolic 57–80; PULSE 59–97; RESP 14–21; TEMP 97–98.2; O2SAT 95–100
[2023-08-11] MEDS ORDERED: ALBU90AE INH (02:20)
[2023-08-11 05:42] LABS: EOSINOPHILS # (AUTO) 0.1 X10'3 (0-0.9); HEMOGLOBIN 12.3 g/dl (14.0-17.9); MEAN PLATELET VOLUME 8.1 FL (7.4-10.4)
[2023-08-11 05:45] LABS: BASOPHILS % (AUTO) 0.7 % (0-1); EOSINOPHILS % (AUTO) 1.6 % (0-6); HEMATOCRIT 36.8 % (42.0-52.0); LYMPHOCYTES % (AUTO) 30.7 % (21-51); MEAN CORPUSCULAR HEMOGLOBIN 30.4 PG (27.0-31.0); MEAN CORPUSCULAR HGB CONC 33.5 g/dL (33.0-36.5); MONOCYTES # (AUTO) 0.5 X10'3 (0-0.9); MONOCYTES % (AUTO) 7.2 % (2-12); NEUTROPHILS # (AUTO) 3.9 X10'3 (1.8-7.7); NEUTROPHILS % (AUTO) 59.8 % (42-75); PLATELET COUNT 301 X10'3 (140-440); RED BLOOD COUNT 4.04 X10'6 (4.70-6.10); RED CELL DISTRIBUTION WIDTH 14.5 % (11.5-14.5); WHITE BLOOD COUNT 6.5 X10'3 (4.5-11.0)
[2023-08-11 05:51] LABS: APTT 25 SECONDS (22-32); PROTHROMBIN TIME 10.9 SECONDS (9.0-12.0)
[2023-08-11 05:58] LABS: ALANINE AMINOTRANSFERASE 225 U/L (12-78); ALBUMIN 2.5 G/DL (3.4-5.0); ALBUMIN/GLOBULIN RATIO 0.8 (1.1-1.5); ALKALINE PHOSPHATASE 113 IU/L (46-116); ANION GAP 7 (8-16); ASPARTATE AMINO TRANSFERASE 148 U/L (10-37); BILIRUBIN,TOTAL 0.6 MG/DL (0.1-1.0); BLOOD UREA NITROGEN 17 MG/DL (7-18); BUN/CREATININE RATIO 24.3 (10.0-20.0); CALCIUM 7.8 MG/DL (8.5-10.1); CHLORIDE 109 MMOL/L (99-107); CHOL/HDL RATIO 2.9 (0.00-4.99); CHOLESTEROL 172 MG/DL (0-200); GLUCOSE 90 MG/DL (70-104); HDL CHOLESTEROL 60 MG/DL (35-60); LDL CHOLESTEROL 99 MG/DL (50-100); SODIUM 142 MMOL/L (135-145); TOTAL CARBON DIOXIDE 26.2 MMOL/L (24-32); TOTAL PROTEIN 5.5 G/DL (6.4-8.2); TRIGLYCERIDES 83 MG/DL (20-135); eCRCL 118 ML/MIN; eGFR > 90 ML/MIN
[2023-08-11] MEDS: regadenoson 0.4mg/5ml syringe IV PRN (10:36)
[2023-08-11] MEDS: pantoprazole 40 MG vial IV SCH (13:07)
[2023-08-11] MEDS: aspirin 81mg tab.chew PO SCH (13:07)
[2023-08-11] MEDS ORDERED: MORPHINE SULFATE 20 MG PO PRN (17:05)
[2023-08-11] MEDS: carVEDilol 3.125mg tablet PO SCH (17:27)
[2023-08-11] MEDS: pantoprazole 40mg Tablet.DR PO SCH (20:13)
[2023-08-12] VITALS (9 sets, daily range): BP systolic 102–123; BP diastolic 68–89; PULSE 55–78; RESP 10–16; TEMP 97.6–98.3; O2SAT 95–98
[2023-08-12 06:50] LABS: APTT 25 SECONDS (22-32); PROTHROMBIN TIME 10.8 SECONDS (9.0-12.0)
[2023-08-12 06:56] LABS: BASOPHILS # (AUTO) 0.1 X10'3 (0-0.2); BASOPHILS % (AUTO) 1.2 % (0-1); EOSINOPHILS # (AUTO) 0.1 X10'3 (0-0.9); EOSINOPHILS % (AUTO) 1.6 % (0-6); HEMATOCRIT 41.2 % (42.0-52.0); HEMOGLOBIN 13.7 g/dl (14.0-17.9); LYMPHOCYTES # (AUTO) 2.1 X10'3 (1.1-4.8); LYMPHOCYTES % (AUTO) 37.8 % (21-51); MEAN CORPUSCULAR HEMOGLOBIN 30.2 PG (27.0-31.0); MEAN CORPUSCULAR HGB CONC 33.4 g/dL (33.0-36.5); MEAN CORPUSCULAR VOLUME 90.5 FL (78-98); MEAN PLATELET VOLUME 8.4 FL (7.4-10.4); MONOCYTES # (AUTO) 0.4 X10'3 (0-0.9); MONOCYTES % (AUTO) 7.2 % (2-12); NEUTROPHILS # (AUTO) 2.9 X10'3 (1.8-7.7); NEUTROPHILS % (AUTO) 52.2 % (42-75); PLATELET COUNT 326 X10'3 (140-440); RED BLOOD COUNT 4.55 X10'6 (4.70-6.10); RED CELL DISTRIBUTION WIDTH 14.7 % (11.5-14.5); WHITE BLOOD COUNT 5.5 X10'3 (4.5-11.0)
[2023-08-12 07:08] LABS: ALANINE AMINOTRANSFERASE 180 U/L (12-78); ALBUMIN 2.9 G/DL (3.4-5.0); ALBUMIN/GLOBULIN RATIO 0.8 (1.1-1.5); ALKALINE PHOSPHATASE 125 IU/L (46-116); ANION GAP 7 (8-16); ASPARTATE AMINO TRANSFERASE 74 U/L (10-37); BILIRUBIN,TOTAL 0.8 MG/DL (0.1-1.0); BLOOD UREA NITROGEN 11 MG/DL (7-18); BUN/CREATININE RATIO 14.3 (10.0-20.0); CALCIUM 8.3 MG/DL (8.5-10.1); CHLORIDE 107 MMOL/L (99-107); CREATININE 0.77 MG/DL (0.60-1.10); GLUCOSE 77 MG/DL (70-104); POTASSIUM 3.8 MMOL/L (3.5-5.1); SODIUM 143 MMOL/L (135-145); TOTAL CARBON DIOXIDE 29.2 MMOL/L (24-32); TOTAL PROTEIN 6.4 G/DL (6.4-8.2); eCRCL 107 ML/MIN; eGFR > 90 ML/MIN
[2023-08-12] MEDS ORDERED: verapamil 2.5 mg/ml inj IV ONE (09:27)
[2023-08-12] MEDS ORDERED: LIDOcaine 1% (10mg/ml) 2ml vial ONE (09:27)
[2023-08-12] MEDS ORDERED: iohexol 350MG/ML 100ml bottle IV ONE ×2 (09:28→12:38)
[2023-08-12] MEDS ORDERED: heparin 1,000unit/ml 10ml vial 10 ML ONE (09:28)
[2023-08-12] MEDS ORDERED: midazolam 1 mg/ML 2ml injection ONE ×2 (09:28→12:22)
[2023-08-12] MEDS ORDERED: iohexol 350 MG/ML 50ML vial IV ONE (09:28)
[2023-08-12] MEDS ORDERED: fentaNYL/PF 50MCG/1 ML 2ML syringe ONE (09:30)
[2023-08-12] MEDS ORDERED: nitroGLYCERIN 500mcg/5mL D5W 5 ML IV ONE (09:37)
[2023-08-12] MEDS: morphine 2 MG/ML inj. syringe IV PRN (10:08)
[2023-08-12] MEDS: tamsulosin 0.4mg capsule PO SCH (10:10)
[2023-08-12] MEDS ORDERED: heparin 25,000 UNIT/250ml bag 0 ML IV ONE (12:23)
[2023-08-12] MEDS ORDERED: COR3.125T PO (14:38)
[2023-08-12] MEDS ORDERED: ATOR20TA66 PO (14:38)
[2023-08-12] MEDS ORDERED: ASPI81TA53 PO (14:38)
== END 2023-08-12 16:38 | disposition home or self-care (01) | DRG 198 ==
LOC: ER 13:34 → ED HOLD 17:06 → PCU 3S 20:50
PROVIDERS: ADMIT Family Medicine; ATTEND Family Medicine
PROC: 4A02XM4 Measurement of Cardiac Total Activity, External Approach (ICD-10-PCS; principal; 2023-08-11)
DX: I25.119 Atherosclerotic heart disease of native coronary artery with unspecified angina pectoris (principal); E86.0 Dehydration; F12.90 Cannabis use, unspecified, uncomplicated; F32.A Depression, unspecified; I10 Essential (primary) hypertension; K21.9 Gastro-esophageal reflux disease without esophagitis; G89.4 Chronic pain syndrome; J44.9 Chronic obstructive pulmonary disease, unspecified; N40.0 Benign prostatic hyperplasia without lower urinary tract symptoms; Z79.82 Long term (current) use of aspirin; Z79.899 Other long term (current) drug therapy; Z82.49 Family history of ischemic heart disease and other diseases of the circulatory system; Z85.118 Personal history of other malignant neoplasm of bronchus and lung; Z87.891 Personal history of nicotine dependence; Z88.5 Allergy status to narcotic agent; Z88.8 Allergy status to other drugs, medicaments and biological substances; Z90.49 Acquired absence of other specified parts of digestive tract
CPT/HCPCS: 36415; 71045; 71275; 76937; 78452; 80048; 80053; 80061; 83036; 83605; 83735; 83880; 84100; 84132; 84443; 84484; 85025; 85610; 85730; 87081; 93005; 93017; 93306; 93458; 93880; 99152; 99153; 99285; A6258; A6402; A9500; C1725; C1894; C9113; G0378; J1200; J1644; J2250; J2270; J2405; J2785; J3010; J3490; J7030; J7040; Q9967